=== PATIENT | female | born 1965 | race Caucasian/White ===

== ENCOUNTER 2019-09-08 06:01 | Emergency (ER) | payer SELFPAY ==
[2019-09-08 06:03] VITALS: BP 134/78; PULSE 110; RESP 16; TEMP 36.3; O2SAT 100
--- NOTE | 2019-09-08 06:45 | ED.ALLEREA ---
HPI - Allergic Reaction General Chief complaint: Allergic Reaction Stated complaint: hives Time Seen by Provider: 09/08/19 06:11 Source: patient Mode of arrival: ambulatory Limitations: no limitations History of Present Illness HPI narrative: Patient is a 54-year-old female who presents to the emergency department with complaint of hives. Patient states she was doing some rehab work around her house yesterday and did notice some itching when she finished her work. Patient then noticed development of hives. Patient describes them as raised red welts scattered across her body. She states they have in addition to being pruritic become painful. Patient denies any other acute symptoms she tried taking Benadryl twice with her last dose a couple of hours ago. Patient is also used topical Benadryl as well as calamine lotion. Patient is uncertain what she may have been exposed to that could have contributed to development of hives. She denies any new exposures. complaint: hives Onset (ago): day(s) Exposure: unknown (Denies any new product exposures) Symptoms: rash and itching Treatment prior to arrival: benadryl and topical medicine (Calamine lotion, topical Benadryl) Related Data Allergies Allergy/AdvReac Type Severity Reaction Status Date / Time Penicillins Allergy Mild rash Verified 09/08/19 06:10 Review of Systems Review of Systems: All systems reviewed & are unremarkable except as noted in HPI and below Constitutional: Constitutional: Denies fever(s) Respiratory: Respiratory: Reports cough (Present approximately 1 month) PMFSH Past Medical History Medical History (Updated 09/08/19 @ 06:56 by Tayler Schumacher MD) No significant past medical history Surgical History Surgical History (Updated 09/08/19 @ 06:53 by Tayler Schumacher MD) History of tubal ligation Social History Social History (Updated 09/08/19 @ 06:53 by Tayler Schumacher MD) Smoking status: Current every day smoker Tobacco type: cigarettes Exam Const: General: cooperative, no acute distress and alert Nutritional Appearance: well nourished Orientation/consciousness: patient oriented x3 Limitations: no limitations Resp: Effort & Inspection: normal respiratory effort Auscultation: clear to auscultation bilaterally Cardio: Rate: regular rate Rhythm: regular rhythm GI: GI Palp: Yes Soft to palpation and No Tenderness to palpation present (GI) Auscultation: normal bowel sounds Skin: General skin exam: normal color Rashes: rashes noted hives diffuse multiple locations Neuro: General: patient oriented x3 Cognition (Neuro): normal cognition Speech: normal speech Extrem: General: normal to inspection, full ROM and no clubbing, cyanosis or edema Psych: Mental Status: mental status grossly normal Affect: normal affect Attitude: cooperative Course Course Emergency Course: Patient counseled on care plan with antihistamines and steroid. Vital Signs Vital signs: Vital Signs Temperature 97.4 F L 09/08/19 06:03 Pulse Rate 110 H 09/08/19 06:03 Respiratory Rate 16 09/08/19 06:03 Blood Pressure 134/78 09/08/19 06:03 Pulse Oximetry 100 09/08/19 06:03 Temperature 97.4 F L 09/08/19 06:03 Pulse Rate 110 H 09/08/19 06:03 Respiratory Rate 16 09/08/19 06:03 Blood Pressure 134/78 09/08/19 06:03 Pulse Oximetry 100 09/08/19 06:03 Critical Care Time Critical Care Time Critical Care Time: No Discharge Plan Discharge Clinical Impression: Urticaria Patient Disposition: Home, Self-Care Condition: Stable Instructions: Urticaria (ED) Additional Instructions: May take steroid as prescribed for your rash. Benadryl 25 to 50 mg every 4-6 hours as needed for itching. Follow-up with primary care physician for further care if not improving. Prescriptions: New methylprednisolone [Medrol ([place])] 4 mg tablets,dose pack See Rx Instructions .ROUTE .COMPLEX Qty: 21 RF: 0 Follow-up/Refe
[2019-09-08 07:06] VITALS: BP 128/81; PULSE 93; RESP 20; O2SAT 100
== END 2019-09-08 07:07 | disposition home or self-care (01) ==
PROVIDERS: Emergency Provider Emergency Medicine; PCP Emergency Medicine
DX: L50.9 Urticaria, unspecified (principal); F17.210 Nicotine dependence, cigarettes, uncomplicated
CPT/HCPCS: 99283

== ENCOUNTER 2021-01-08 23:13 | Emergency (ER) | payer SELFPAY ==
--- NOTE | ~2021-01-08 | XR_ITS ---
XR chest 2V DATE: 01/09/2021 00:19 INDICATION: Chest tightness, shortness of breath TECHNIQUE: PA and lateral views COMPARISON: 03/01/2012 PA and lateral chest FINDINGS: Bilateral hyperinflation. No pulmonary infiltrate or consolidation, pleural effusion or pul monary vascular congestion or pneumothorax. Normal heart size. No hilar or mediastinal enlargement. IMPRESSION: Bilateral hyperinflation Reviewed, dictated and finalized at location A. IMPRESSION: Bilateral hyperinflation
[2021-01-08 23:16] VITALS: BP 135/84; PULSE 112; RESP 18; TEMP 36.3; O2SAT 96
--- NOTE | 2021-01-08 23:26 | ECG_ITS ---
Measurements Intervals [place] Rate: 104 P: 83 ND: 141 QRS: 75 QRSD: 80 T: 54 QT: 336 QTc: 442 Interpretive Statements SINUS TACHYCARDIA POSSIBLE RIGHT ATRIAL ENLARGEMENT LEFT ATRIAL ENLARGEMENT BORDERLINE ECG Electronically Signed On 01-09-2021 6:43:43 CDT by Dom Hua D.O.
[2021-01-08 23:42] LABS: Basophils Percent Auto 0.5 % (0.2-1.2); Eosinophils Absolute Auto 0.1 K/mm3 (0-0.3); Eosinophils Percent Auto 1.1 % (0-4.4); Hematocrit 38.2 % (37.0-47.0); Hemoglobin 12.8 g/dL (12.0-15.0); Immature Granulocyte Absolute 0.01 K/mm3 (0.00-0.031); Immature Granulocyte Percent A 0.2 % (0-0.5); Lymphocytes Absolute Auto 2.41 K/mm3 (0.9-3.2); Lymphocytes Percent Auto 39.3 % (18.3-44.2); Mean Corpuscular HGB Conc 33.5 g/dl (32-36); Mean Corpuscular Hemoglobin 30.5 pg (26-34); Mean Corpuscular Volume 91.2 fl (80-100); Mean Platelet Volume 9.6 fl (7.4-10.4); Monocytes Absolute Auto 0.5 K/mm3 (0.1-0.6); Monocytes Percent Auto 7.7 % (2.6-8.5); Neutrophils Absolute Auto 3.2 K/mm3 (1.3-6.7); Neutrophils Percent Auto 51.2 % (45.5-73.1); Platelet Count Result 239 k/mm3 (150-375); Red Blood Count 4.19 M/mm3 (4.2-5.4); Red Cell Distribution Width 13.2 % (11.5-14.5); White Blood Count 6.1 K/mm3 (4.5-10.0)
[2021-01-08 23:51] LABS: Anion Gap 7 mmol/L (8-16); Blood Urea Nitrogen 9 mg/dL (7-17); Calcium 9.5 mg/dL (8.4-10.2); Carbon Dioxide 27 mmol/L (22-30); Chloride 102 mmol/L (98-107); Estimated CRCL calculation 59 ml/min; Estimated Glomerular Filt Rate > 60; Glucose 136 mg/dL (65-110); Potassium 3.7 mmol/L (3.4-5.0); Sodium 136 mmol/L (137-145)
[2021-01-08 23:53] LABS: INR 0.9; Prothrombin Time 12.2 Seconds (11.1-14.7)
[2021-01-08 23:54] LABS: Partial Thromboplastin Time 24.4 SECONDS (22.3-36.8)
[2021-01-09 00:01] VITALS: BP 129/79; PULSE 98; RESP 22; O2SAT 100
[2021-01-09 00:03] LABS: Troponin I < 0.012 ng/mL (0.000-0.034)
--- NOTE | 2021-01-09 00:09 | PC.NURSE ---
pt to xray at this time
--- NOTE | 2021-01-09 01:47 | ED.DIZZY ---
HPI - Dizziness General Chief Complaint: Dizziness Stated Complaint: Dizziness, SOB, Chest pain Time Seen by Provider: 01/09/21 00:51 Source: patient and RN notes reviewed Mode of arrival: ambulatory Limitations: no limitations History of Present Illness HPI Narrative: This is a 55 year old female who presents for evaluation of heart racing. She states over the past week she has had intermittent episodes of heart racing. She has noticed when she gets upset she develops sensation of heart racing, chest tightness or shortness of breath. She also reports dizziness during these episodes. This happened again earlier today. She denies any symptoms currently. She denies cough, fever, chills, nausea or vomiting. She reports having diarrhea 2 days. Patient also complains of sinus drainage and congestion . She denies facial pain. Related Data Allergies Allergy/AdvReac Type Severity Reaction Status Date / Time Penicillins Allergy Mild rash Verified 09/08/19 06:10 Review of Systems Review of Systems: All systems reviewed & are unremarkable except as noted in HPI and below PMFSH Past Medical History Medical History No significant past medical history Surgical History Surgical History History of tubal ligation Social History Social History (Updated 09/08/19 @ 06:53 by Tayler Schumacher MD) Smoking status: Current every day smoker Tobacco type: cigarettes Exam Const: General: no acute distress and alert Orientation/consciousness: patient oriented x3 Eyes: EOM: EOMs intact bilaterally Chest: Chest palpation & inspection: normal inspection of the chest Resp: Effort & Inspection: normal respiratory effort and no retractions Auscultation: clear to auscultation bilaterally Cardio: Rate: regular rate Rhythm: regular rhythm Heart sounds: no murmurs GI: Auscultation: normal bowel sounds Skin: General skin exam: normal color Rashes: no rashes Neuro: General: patient oriented x3, moves all extremities and CN's II-XI intact bilaterally Extrem: General: normal to inspection Psych: Mental Status: mental status grossly normal Affect: normal affect Course Reevaluation(s) Reevaluation #1: Patient denies any symptoms currently. I discussed she will need to call PCP to evaluated her episodes of heart racing. Date: 01/09/21 Time: 01:51 Vital Signs Vital signs: Vital Signs Temperature 97.4 F L 01/08/21 23:16 Pulse Rate 112 H 01/08/21 23:16 Respiratory Rate 18 01/08/21 23:16 Blood Pressure 135/84 01/08/21 23:16 Pulse Oximetry 96 01/08/21 23:16 Temperature 97.4 F L 01/08/21 23:16 Pulse Rate 90 01/09/21 02:06 Respiratory Rate 23 H 01/09/21 02:06 Blood Pressure 123/70 01/09/21 02:06 Pulse Oximetry 96 01/09/21 02:06 MDM - Dizziness Lab Data Attestation: I reviewed the patient's lab results. Result diagrams: 01/08/21 23:33 01/08/21 23:33 Labs: Lab Results 01/08/21 01/08/21 01/08/21 Range/Units 23:33 23:33 23:33 WBC 6.1 (4.5-10.0) K/mm3 RBC 4.19 L (4.2-5.4) M/mm3 Hgb 12.8 (12.0-15.0) g/dL Hct 38.2 (37.0-47.0) % MCV 91.2 (80-100) fl MCH 30.5 (26-34) pg MCHC 33.5 (32-36) g/dl RDW 13.2 (11.5-14.5) % Plt Count 239 (150-375) k/mm3 MPV 9.6 (7.4-10.4) fl Immature Gran % (Auto) 0.2 (0-0.5) % Neut % (Auto) 51.2 (45.5-73.1) % Lymph % (Auto) 39.3 (18.3-44.2) % [place] % (Auto) 7.7 (2.6-8.5) % Eos % (Auto) 1.1 (0-4.4) % Baso % (Auto) 0.5 (0.2-1.2) % Lymph # (Auto) 2.41 (0.9-3.2) K/mm3 [place] # (Auto) 0.5 (0.1-0.6) K/mm3 Eos # (Auto) 0.1 (0-0.3) K/mm3 Baso # (Auto) 0.0 (0.0-0.1) K/mm3 Abs Immat Gran (auto) 0.01 (0.00-0.031) K/mm3 Absolute Neuts (auto) 3.2 (1.3-6.7) K/mm3 Absolute Nucleated RBC 0.0 (0.0-0.012) K/mm3 Nucleate
[2021-01-09 01:52] VITALS: BP 123/70; PULSE 84; RESP 20; O2SAT 95
[2021-01-09 02:06] VITALS: BP 123/70; PULSE 90; RESP 23; O2SAT 96
== END 2021-01-09 02:08 | disposition home or self-care (01) ==
PROVIDERS: Emergency Medicine; Emergency Provider General Practice; PCP Emergency Medicine
DX: R00.2 Palpitations (principal); F17.210 Nicotine dependence, cigarettes, uncomplicated; R00.0 Tachycardia, unspecified; R94.31 Abnormal electrocardiogram [ECG] [EKG]
CPT/HCPCS: 36415; 71046; 80048; 84484; 85025; 85380; 85610; 85730; 93005; 99284

== ENCOUNTER 2022-03-17 22:23 | Emergency (ER) | payer OTHER, SELFPAY ==
--- NOTE | ~2022-03-17 | CT_ITS ---
EXAMINATION: CT abdomen pelvis w con DATE: 03/17/2022 23:48 INDICATION: Epigastric abdominal pain. Nausea and vomiting. TECHNIQUE: Computed tomography (CT) of the abdomen and pelvis was performed with 100 mL Omnipaque 350 intravenous contrast. Automated exposure control and iterative reconstruction technique were employe d. The dose-length product was 173.26 mGy-cm. COMPARISON: None. FINDINGS: The visualized portions of the lung bases are clear without pneumonia or pleural effusion. The heart size is normal. No pericardial effusion. There is mild pectus excavatum. The liver, gallbla dder, spleen, pancreas, and adrenal glands are normal. There is mild focal cortical thinning in right kidney. There are cysts in left kidney measuring up to 12 mm. The periuterine veins and ovarian vein s are enlarged, consistent with pelvic venous insufficiency. There are no dilated loops of bowel. The appendix is normal. There are no pathologically enlarged lymph nodes. There is no free intraperitone al fluid. There is mild lumbar spondylosis. IMPRESSION: 1. Pelvic venous insufficiency. Reviewed, dictated and finalized at location A.
[2022-03-17 22:24] VITALS: BP 184/105; PULSE 107; RESP 20; TEMP 36.3; O2SAT 98
[2022-03-17 22:28] VITALS: BP 184/105; PULSE 107; RESP 20; TEMP 36.3; O2SAT 98
[2022-03-17 22:40] LABS: Basophils Percent Auto 0.2 % (0.2-1.2); Eosinophils Percent Auto 0.2 % (0-4.4); Hematocrit 42.3 % (37.0-47.0); Hemoglobin 14.3 g/dL (12.0-15.0); Immature Granulocyte Absolute 0.02 K/mm3 (0.00-0.031); Immature Granulocyte Percent A 0.2 % (0-0.5); Lymphocytes Absolute Auto 2.48 K/mm3 (0.9-3.2); Lymphocytes Percent Auto 26.4 % (18.3-44.2); Mean Corpuscular HGB Conc 33.8 g/dl (32-36); Mean Corpuscular Hemoglobin 31.7 pg (26-34); Mean Corpuscular Volume 93.8 fl (80-100); Mean Platelet Volume 9.2 fl (7.4-10.4); Monocytes Absolute Auto 0.9 K/mm3 (0.1-0.6); Monocytes Percent Auto 9.7 % (2.6-8.5); Neutrophils Absolute Auto 5.9 K/mm3 (1.3-6.7); Neutrophils Percent Auto 63.3 % (45.5-73.1); Platelet Count Result 215 k/mm3 (150-375); Red Blood Count 4.51 M/mm3 (4.2-5.4); Red Cell Distribution Width 13.7 % (11.5-14.5); White Blood Count 9.4 K/mm3 (4.5-10.0)
[2022-03-17 22:41] LABS: Appearance Urine Cloudy (Clear); Bilirubin Urine 1+ (Negative); Blood Urine 1+ (Negative); Color Urine Yellow (Yellow); Glucose Urine UA Negative (Negative); Ketones Urine Trace mg/dL (Negative); Leukocyte Esterase Ur Negative LEU/UL (Negative); Nitrate Urine Negative (Negative); Protein Urine Negative (Negative)
[2022-03-17 22:46] LABS: Amorphous Sediment Urine Few; Mucus Urine Rare /lpf; WBC Urine 16-20 /hpf
[2022-03-17 22:47] LABS: Add Urine Microscopic? YES
[2022-03-17 22:57] LABS: Alanine Aminotransferase 25 U/L (6-35); Albumin Level 4.6 g/dL (3.5-5.1); Alkaline Phosphatase 63 U/L (38-126); Anion Gap 9 mmol/L (8-16); Aspartate Amino Transferase 32 U/L (14-36); Blood Urea Nitrogen 10 mg/dL (7-17); Calcium 9.3 mg/dL (8.4-10.2); Carbon Dioxide 29 mmol/L (22-30); Chloride 98 mmol/L (98-107); Estimated Glomerular Filt Rate > 60; Glucose 133 mg/dL (65-110); Lipase 107 U/L (23-300); Potassium 3.6 mmol/L (3.4-5.0); Sodium 136 mmol/L (137-145)
--- NOTE | 2022-03-18 00:55 | ED.GENADULT ---
HPI - General Adult General Chief complaint: Abdominal Pain Stated complaint: abdominal pain Time Seen by Provider: 03/17/22 22:35 History of Present Illness HPI narrative: Patient is a 56-year-old female who presents ER with epigastric pain. Began 3 days ago after arriving at intermediate for unpaid speeding tickets. Sharp nonradiating. She reports at the time she was found also had elevated blood sugar and elevated blood pressures so she was given a pill. After being released patient went home and showered and came here for further evaluation. No fever chills or sweats. No vomiting or diarrhea. No urinary frequency urgency or dysuria. She has found no modifying factors for improvement. Is worsened by palpation. Related Data Allergies Allergy/AdvReac Type Severity Reaction Status Date / Time Penicillins Allergy Mild rash Verified 03/17/22 22:25 Review of Systems Review of Systems: All systems reviewed & are unremarkable except as noted in HPI and below Constitutional: Constitutional: Denies chills, Denies fatigue and Denies fever(s) ENT: Denies nasal congestion and Denies sore throat Cardiovascular: Cardiovascular: Denies chest pain, Denies radiating jaw, neck or arm pain and Denies slow heart rate Respiratory: Respiratory: Denies cough and Denies dyspnea Gastrointestinal: Gastrointestinal: Reports abdominal pain, Denies diarrhea, Denies nausea and Denies vomiting Genitourinary: Genitourinary: Denies dysuria and Denies flank pain PMFSH Past Medical History Medical History No significant past medical history Surgical History Surgical History History of tubal ligation Social History Social History (Updated 09/08/19 @ 06:53 by Tayler Schumacher MD) Smoking status: Current every day smoker Tobacco type: cigarettes Exam Narrative: GENERAL: Well-appearing, well-nourished, and in no acute distress. HEAD: Normocephalic, atraumatic. CHEST: Clear to auscultation. No respiratory distress. HEART: Regular rate and rhythm. Normal peripheral pulses. ABDOMEN: Soft, mild epigastric tenderness, nondistended, normal active bowel sounds. EXTREMITIES: Normal range of motion. No edema. SKIN: Warm, dry, no rash. NEURO: Alert and oriented x3. PSYCH: Normal mood and affect. Course Course Emergency Course: Patient informed of results. We will give short course antibiotic for abnormal urinalysis. Labs otherwise unremarkable and imaging without evidence of acute intra-abdominal process. Vital Signs Vital signs: Vital Signs Temperature 97.3 F L 03/17/22 22:24 Pulse Rate 107 H 03/17/22 22:24 Respiratory Rate 20 03/17/22 22:24 Blood Pressure 184/105 H 03/17/22 22:24 Pulse Oximetry 98 03/17/22 22:24 Temperature 97.3 F L 03/17/22 22:28 Pulse Rate 100 03/18/22 01:56 Respiratory Rate 16 03/18/22 01:56 Blood Pressure 156/86 H 03/18/22 01:56 Pulse Oximetry 100 03/18/22 01:56 Medical Decision Making Vital Signs Vital Signs: Vital Signs Temperature 97.3 F L 03/17/22 22:24 Pulse Rate 107 H 03/17/22 22:24 Respiratory Rate 20 03/17/22 22:24 Blood Pressure 184/105 H 03/17/22 22:24 Pulse Oximetry 98 03/17/22 22:24 Temperature 97.3 F L 03/17/22 22:28 Pulse Rate 100 03/18/22 01:56 Respiratory Rate 16 03/18/22 01:56 Blood Pressure 156/86 H 03/18/22 01:56 Pulse Oximetry 100 03/18/22 01:56 Lab Data Result diagrams: 03/17/22 22:33 03/17/22 22:33 Labs: Lab Results 03/17/22 03/17/22 03/17/22 Range/Units 22:33 22:33 22:33 WBC 9.4 (4.5-10.0) K/mm3 RBC 4.51 (4.2-5.4) M/mm3 Hgb 14.3 (12.0-15.0) g/dL Hct 42.3 (37.0-47.0) % MCV 93.8 (80-100) fl MCH 31.7 (26-34) pg MCHC 33.8 (32-36) g/dl RDW 13.7 (11.5-14.5) % Plt Count 215 (150-375) k/mm3 MPV 9.2 (7.4-10.4) fl I
[2022-03-18 01:56] VITALS: BP 156/86; PULSE 100; RESP 16; O2SAT 100
== END 2022-03-18 01:57 | disposition home or self-care (01) ==
PROVIDERS: Emergency Provider Emergency Medicine; PCP Emergency Medicine
DX: R10.13 Epigastric pain (principal); N39.0 Urinary tract infection, site not specified; F17.210 Nicotine dependence, cigarettes, uncomplicated
CPT/HCPCS: 36415; 74177; 80053; 81001; 83690; 85025; 87086; 99284; Q9967

== ENCOUNTER 2024-02-15 12:24 | Emergency (ER) | payer OTHER, SELFPAY ==
[2024-02-15 12:38] VITALS: BP 175/92; PULSE 112; RESP 20; TEMP 37; O2SAT 97
--- NOTE | 2024-02-15 13:12 | ED.GENADULT ---
HPI - General Adult General Chief complaint: Unspecified Stated complaint: medication refill Time Seen by Provider: 02/15/24 13:13 Source: patient, RN notes reviewed and old records reviewed Mode of arrival: ambulatory Limitations: no limitations History of Present Illness HPI narrative: Patient presents requesting medication refill. She reports that she called to make an appointment with her primary care provider, only to find that he had retired. She found a new primary care provider, but is unable to see this new provider until next week. Patient has diagnosis of hypertension, she has been out of all of her antihypertensive medication for 5 days. She denies any physical symptoms, but reports that her blood pressure has been elevated when she monitors it. This is concerning to her, she is requesting just enough medicine to get her through to her appointment next week. Related Data Home Medications Medication Instructions Recorded Confirmed amlodipine 10 mg tablet 10 mg PO DAILY 02/15/24 02/15/24 gabapentin 100 mg capsule 100 mg PO DAILY 02/15/24 02/15/24 hydroxyzine HCl 25 mg tablet 25 mg PO BID 02/15/24 02/15/24 lamotrigine 100 mg tablet 100 mg PO DAILY 02/15/24 02/15/24 lidocaine 5 % topical patch 1 patch topical DAILY 02/15/24 02/15/24 losartan 25 mg tablet 25 mg PO DAILY 02/15/24 02/15/24 sertraline 50 mg tablet 50 mg PO DAILY 02/15/24 02/15/24 Allergies Allergy/AdvReac Type Severity Reaction Status Date / Time Penicillins Allergy Mild rash Verified 02/15/24 12:29 Review of Systems Review of Systems: All systems reviewed & are unremarkable except as noted in HPI and below Constitutional: Constitutional: Reports no additional constitutional complaints ENT: Reports system reviewed and no additional complaints, except as documented Cardiovascular: Cardiovascular: Reports no additional cardiovascular complaints Respiratory: Respiratory: Reports no additional respiratory complaints Gastrointestinal: Gastrointestinal: Reports no additional gastrointestinal complaints [facility] Past Medical History Medical History No significant past medical history Surgical History Surgical History History of tubal ligation Social History Social History Smoking status: Current every day smoker Tobacco type: cigarettes Exam Const: General: cooperative, no acute distress, alert and awake Orientation/consciousness: oriented to person, oriented to place and oriented to time HENMT: Head: normal to inspection Resp: Effort & Inspection: normal respiratory effort and able to speak in complete sentences Auscultation: clear to auscultation bilaterally, no crackles, no rales, no rhonchi and no wheezes Cardio: Palpation: normal PMI Rate: regular rate Rhythm: regular rhythm Heart sounds: S1 normal heart sound present and S2 normal heart sound present Neuro: General: oriented to person, oriented to place and oriented to time Cranial nerves: Yes CN's II-XII intact bilaterally Psych: Appearance: grossly normal Thought process: Normal thought process present Insight: Good insight present (Psych) Judgement: Good judgement present (Psych) Course Course Level of Care: Express Care Visit Vital Signs Vital signs: Vital Signs Temperature 98.6 F 02/15/24 12:38 Pulse Rate 112 H 02/15/24 12:38 Respiratory Rate 20 02/15/24 12:38 Blood Pressure 175/92 H 02/15/24 12:38 Pulse Oximetry 97 02/15/24 12:38 Oxygen Delivery Room Air 02/15/24 12:38 Temperature 98.6 F 02/15/24 12:38 Pulse Rate 112 H 02/15/24 12:38 Respiratory Rate 20 02/15/24 12:38 Blood Pressure 175/92 H 02/15/24 12:38 Pulse Oximetry 97 02/15/24 12:38 Oxygen Delivery Room Air 02/15/24 12:38 Medical Decision Making [facility] Narrative Medical decision making narrat
== END 2024-02-15 13:25 | disposition home or self-care (01) ==
PROVIDERS: Emergency Provider Nurse Practitioner Family
DX: I10 Essential (primary) hypertension (principal); F17.210 Nicotine dependence, cigarettes, uncomplicated
CPT/HCPCS: 99213; G0463

== ENCOUNTER 2024-03-04 18:34 | Emergency (ER) | payer OTHER, SELFPAY ==
[2024-03-04 18:48] VITALS: BP 153/91; PULSE 102; RESP 16; TEMP 37.4; O2SAT 99
--- NOTE | 2024-03-04 19:03 | ED.GENADULT ---
HPI - General Adult General Chief complaint: Unspecified Stated complaint: Meds Refill Time Seen by Provider: 03/04/24 18:55 Source: patient Mode of arrival: ambulatory Limitations: no limitations History of Present Illness HPI narrative: Idalia is a 58-year-old female patient presenting to the clinic today requesting a medication refill of her amlodipine, losartan, gabapentin, lamotrigine and sertraline. She has been out of her medications for approximately 1.5 weeks. Blood pressure is 153/91 in the clinic today Related Data Home Medications Medication Instructions Recorded Confirmed amlodipine 10 mg tablet 10 mg PO DAILY 02/15/24 02/15/24 gabapentin 100 mg capsule 100 mg PO DAILY 02/15/24 02/15/24 hydroxyzine HCl 25 mg tablet 25 mg PO BID 02/15/24 02/15/24 lamotrigine 100 mg tablet 100 mg PO DAILY 02/15/24 02/15/24 lidocaine 5 % topical patch 1 patch topical DAILY 02/15/24 02/15/24 losartan 25 mg tablet 25 mg PO DAILY 02/15/24 02/15/24 sertraline 50 mg tablet 50 mg PO DAILY 02/15/24 02/15/24 Allergies Allergy/AdvReac Type Severity Reaction Status Date / Time Penicillins Allergy Mild rash Verified 03/04/24 18:58 Review of Systems Review of Systems: Pertinent positives per HPI. Patient denies any fever, chills, rash, headache, visual changes, dizziness, cough, runny nose, sore throat, shortness of breath, chest pain, palpitations, nausea, vomiting, diarrhea, constipation, abdominal pain, or any urinary issues. PMFSH Past Medical History Medical History No significant past medical history Surgical History Surgical History History of tubal ligation Social History Social History Smoking status: Current every day smoker Tobacco type: cigarettes Comments At the time of my signature, I reviewed and agree with the nursing past medical, surgical, social, and family history. There is no relevant family history pertinent to the patient complaint. Exam Narrative: General: Well-developed, well nourished, in no apparent distress Head: Normocephalic, atraumatic. Cardio: Regular rate and rhythm, s1 and s2 normal, no murmur appreciated. Resp: Clear to auscultation bilaterally, no rhonchi, rales, wheezing or rubs. Extremities: No deformity, no edema, no cyanosis, capillary refill less than 2 seconds, peripheral pulses palpable and strong. Integumentary: [place], warm, and dry, intact without lesion, no rashes. Course Course Emergency Course: Portions of this record may have been created with voice recognition software. Level of Care: Express Care Visit Vital Signs Vital signs: Vital Signs Temperature 37.4 C 03/04/24 18:48 Pulse Rate 102 H 03/04/24 18:48 Respiratory Rate 16 03/04/24 18:48 Blood Pressure 153/91 H 03/04/24 18:48 Pulse Oximetry 99 03/04/24 18:48 Oxygen Delivery Room Air 03/04/24 18:48 Temperature 37.4 C 03/04/24 18:48 Pulse Rate 102 H 03/04/24 18:48 Respiratory Rate 16 03/04/24 18:48 Blood Pressure 153/91 H 03/04/24 18:48 Pulse Oximetry 99 03/04/24 18:48 Oxygen Delivery Room Air 03/04/24 18:48 Vital signs reviewed Medical Decision Making MDM Narrative Medical decision making narrative: At the time of visit patient is resting comfortably on the exam table. Patient appears to be nontoxic. plan: Discussed filling patient's amlodipine and losartan 1 more time as she has been recently seen for a medication refill and she needs to follow-up with her provider for further refills. Told her I am unable to prescribe any of her other medications at this time if she needs a further evaluation. Supportive measures were discussed with the patient and they voiced understanding discharge instructions and agrees to treatment plan. Return precautions reviewed Differential Diagnosis
== END 2024-03-04 19:08 | disposition home or self-care (01) ==
PROVIDERS: Emergency Provider Nurse Practitioner Family; PCP Emergency Medicine
DX: Z76.0 Encounter for issue of repeat prescription (principal); I10 Essential (primary) hypertension; F17.210 Nicotine dependence, cigarettes, uncomplicated
CPT/HCPCS: 99211; 99213; G0463